=== PATIENT | female | born 1985 | race African-American/Black ===

== ENCOUNTER 2016-11-20 20:19 | Emergency (ER) | payer MEDICAID, OTHER ==
[~2016-11-20] VITALS: Ht 162.6 cm; Wt 81.0 kg
[2016-11-20] MEDS ORDERED: BACITRACIN ZINC OINT UDPKT TOP ONE ×2 (22:45→23:00)
[2016-11-20] MEDS ORDERED: KETOROLAC 60MG/2ML VIAL IM ONE (22:45)
[2016-11-20] MEDS ORDERED: LIDOCAINE HCL 1% 20ML VIAL (Pyxis) INJ MC ONE (23:00)
[2016-11-20] MEDS ORDERED: ONDANSETRON 4MG ODT PO ONE (23:00)
[2016-11-20 23:30] VITALS: BP 119/77
[2016-11-21 01:11] LABS: HCG SCREEN NEGATIVE
== END 2016-11-21 01:19 | disposition home or self-care (01) ==
LOC: ER 22:43
PROC: 0HQ1XZZ Repair Face Skin, External Approach (ICD-10-PCS; principal; 2016-11-21)
DX: S01.412A Laceration without foreign body of left cheek and temporomandibular area, initial encounter (principal); F17.210 Nicotine dependence, cigarettes, uncomplicated; Y24.8XXA Other firearm discharge, undetermined intent, initial encounter; Y93.89 Activity, other specified; Y92.89 Other specified places as the place of occurrence of the external cause
CPT/HCPCS: 12011; 84703; 96372; 99284; J1885; J3490; Q0162; Z7610

== ENCOUNTER 2017-05-10 21:45 | Emergency (ER) | payer MEDICAID ==
[~2017-05-10] VITALS: Ht 162.6 cm; Wt 94.0 kg
[2017-05-10] MEDS ORDERED: ACETAMINOPHEN 500MG TABLET PO ONE (23:15)
[2017-05-11 00:15] VITALS: BP 121/89
== END 2017-05-11 00:24 | disposition home or self-care (01) ==
LOC: ER 22:23
DX: J11.1 Influenza due to unidentified influenza virus with other respiratory manifestations (principal); M94.0 Chondrocostal junction syndrome [Tietze]; Z98.890 Other specified postprocedural states
CPT/HCPCS: 71045; 99283

== ENCOUNTER 2017-11-21 09:54 | Emergency (ER) | payer MEDICAID ==
[~2017-11-21] VITALS: Ht 162.6 cm; Wt 83.0 kg
[2017-11-21] MEDS ORDERED: LIDOCAINE 1%/EPI 1:100,000 10 ML VIAL IJ ONE (11:15)
[2017-11-21] MEDS ORDERED: ACETAMINOPHEN 325MG TABLET PO PRN (11:15)
[2017-11-21] MEDS ORDERED: BACITRACIN ZINC OINT UDPKT TOP ONE (11:15)
[2017-11-21] MEDS ORDERED: LIDOCAINE HCL/PF 1% 10 MG/ML 5ML VIAL IJ ONE (11:15)
[2017-11-21 12:48] LABS: BASOPHILS % 0.3 % (0.0-2.0); HEMATOCRIT. 31.1 % (36.0-48.0); HEMOGLOBIN. 10.7 g/dL (12.0-16.0); LYMPHOCYTES % 17.6 % (20.0-50.0); MEAN CORPUSCULAR HEMOGLOBIN 30.2 pg (28.0-32.0); MEAN CORPUSCULAR VOLUME 87.8 fL (81.0-99.0); MEAN PLATELET VOLUME 7.9 fl (7.4-10.4); MONOCYTES % 6.5 % (2.0-8.0); NEUTROPHILS % 72.6 % (40.0-76.0); PLATELET 236 x1000/uL (130-400); RED BLOOD CELL COUNT 3.54 mill/uL (4.2-5.4); RED CELL DISTRIBUTION WIDTH 15.9 % (11.6-14.6)
[2017-11-21 12:53] LABS: CHLORIDE 106 mEq/L (98-107)
[2017-11-21 13:16] LABS: B-HCG QUANTITATIVE 8033 mIU/mL (<3)
[2017-11-21 14:16] LABS: CLARITY URINE CLEAR (CLEAR); COLOR URINE YELLOW (YELLOW); KETONES URINE 1+ (NEGATIVE); LEUKOCYTE ESTERASE URINE TRACE (NEGATIVE); NITRITE URINE NEGATIVE (NEGATIVE); OCCULT BLOOD URINE 3+ (NEGATIVE); PROTEIN URINE NEGATIVE (NEGATIVE); SPECIFIC GRAVITY URINE 1.024 (1.005-1.030); UROBILINOGEN URINE 0.2 E.U./dL (0.2-1.0)
[2017-11-21 15:00] VITALS: BP 108/68
== END 2017-11-21 15:26 | disposition home or self-care (01) ==
LOC: ER 09:54
DX: O26.892 Other specified pregnancy related conditions, second trimester (principal); N76.4 Abscess of vulva; O99.012 Anemia complicating pregnancy, second trimester; Z3A.18 18 weeks gestation of pregnancy; Z98.890 Other specified postprocedural states
CPT/HCPCS: 10060; 36415; 76805; 80053; 81003; 84702; 85025; 99285; J3490; Z7610

== ENCOUNTER 2020-07-21 11:33 | Emergency (ER) | payer MEDICAID, OTHER ==
[~2020-07-21] VITALS: Ht 165.1 cm; Wt 70.0 kg
[2020-07-21] MEDS ORDERED: ACETAMINOPHEN 325MG TABLET PO ONE (13:00)
[2020-07-21] MEDS ORDERED: IBUPROFEN 600MG TABLET PO ONE (13:00)
[2020-07-21] MEDS ORDERED: LIDOCAINE HCL 1% 20ML VIAL (Pyxis) INJ INFIL ONE (13:00)
[2020-07-21] MEDS ORDERED: BACITRACIN ZINC OINT UDPKT TOP ONE (13:00)
[2020-07-21 13:13] VITALS: BP 129/79
== END 2020-07-21 15:08 | disposition home or self-care (01) ==
LOC: ER 11:33
DX: N75.0 Cyst of Bartholin's gland (principal); R03.0 Elevated blood-pressure reading, without diagnosis of hypertension
CPT/HCPCS: 56420; 87070; 87205; 99284; J3490; Z7610